=== PATIENT | male | born 1960 | race African-American/Black ===

== ENCOUNTER 2018-10-26 22:28 | Emergency (ER) | payer MEDICAID ==
[~2018-10-26] VITALS: Ht 182.9 cm; Wt 102.2 kg
[2018-10-27 00:23] LABS: CHLORIDE 104 mEq/L (98-107)
[2018-10-27 00:27] LABS: ETHANOL BLOOD < 10 mg/dL
[2018-10-27 01:30] VITALS: BP 198/120
[2018-10-28] MEDS ORDERED: FURO20TA4 MT (03:35)
== END 2018-10-27 03:02 | disposition left against medical advice (07) ==
LOC: ER 22:28 → CANBEDREQ 10-27 06:05
DX: I11.0 Hypertensive heart disease with heart failure (principal); I50.9 Heart failure, unspecified; F17.200 Nicotine dependence, unspecified, uncomplicated; Z86.73 Personal history of transient ischemic attack (TIA), and cerebral infarction without residual deficits; R40.4 Transient alteration of awareness
CPT/HCPCS: 36415; 71045; 80320; 93005; 99284; G0480

== ENCOUNTER 2018-10-27 07:56 | Inpatient (IN) | payer MEDICAID ==
[~2018-10-27] VITALS: Ht 180.3 cm; Wt 98.4 kg
[2018-10-27 08:53] LABS: EOSINOPHILS % 0.7 % (0.0-5.0); HEMATOCRIT. 39.4 % (42.0-52.0); LYMPHOCYTES % 7.6 % (20.0-50.0); MEAN CORPUSCULAR HEMOGLOBIN 30.8 pg (28.0-32.0); MEAN CORPUSCULAR VOLUME 93.5 fL (80.0-94.0); MEAN PLATELET VOLUME 8.5 fl (7.4-10.4); MONOCYTES % 8.7 % (2.0-8.0); PLATELET 221 x1000/uL (130-400); RED BLOOD CELL COUNT 4.21 mill/uL (4.7-6.1); RED CELL DISTRIBUTION WIDTH 15.8 % (11.6-14.6)
[2018-10-27 09:02] LABS: CHLORIDE 105 mEq/L (98-107)
[2018-10-27 09:05] LABS: ETHANOL BLOOD < 10 mg/dL
[2018-10-27 09:17] LABS: INR 1.1; PARTIAL THROMBOPLASTIN TIME 31.3 sec (23.4-31.0); PROTHROMBIN TIME 11.4 sec (9.1-11.1)
[2018-10-27] MEDS ORDERED: ASPIRIN 81MG TABLET PO ONE (10:00)
[2018-10-27] MEDS ORDERED: FUROSEMIDE 40MG/4ML VIAL IVP ONE (10:45)
[2018-10-27] MEDS ORDERED: ENALAPRIL 2.5MG/2ML VIAL 2ML IV ONE (10:45)
[2018-10-27] MEDS ORDERED: IPRATROPIUM/ALBUTEROL 0.5-3(2.5)MG/3ML NEB INH PRN (11:45)
[2018-10-27] MEDS ORDERED: ZOLPIDEM TARTRATE 5MG TABLET PO PRN (11:45)
[2018-10-27] MEDS ORDERED: NITROGLYCERIN 0.4MG TABLET SL SL PRN (11:45)
[2018-10-27] MEDS ORDERED: KETOROLAC 15MG/ML VIAL IV PRN (11:45)
[2018-10-27] MEDS ORDERED: MAGNESIUM/ALUMINUM HYDROXIDE/SIMETHICONE 30ML UDC PO PRN (11:45)
[2018-10-27] MEDS ORDERED: DOCUSATE SODIUM 100MG CAPSULE PO PRN (11:45)
[2018-10-27] MEDS ORDERED: ONDANSETRON HCL 4MG/2ML INJ IV PRN (11:45)
[2018-10-27] MEDS ORDERED: GUAIFENESIN 200MG/10ML SUGAR FREE UDC PO PRN (11:45)
[2018-10-27 11:49] LABS: CLARITY URINE CLEAR (CLEAR); COLOR URINE YELLOW (YELLOW); KETONES URINE TRACE (NEGATIVE); LEUKOCYTE ESTERASE URINE NEGATIVE (NEGATIVE); NITRITE URINE NEGATIVE (NEGATIVE); OCCULT BLOOD URINE 1+ (NEGATIVE); PH URINE 5.5 (4.5-8.0); PROTEIN URINE 2+ (NEGATIVE)
[2018-10-27] MEDS ORDERED: HYDRALAZINE HCL 50MG TABLET PO NR (12:15)
[2018-10-27] MEDS ORDERED: FAMOTIDINE 20MG TABLET PO SCH (12:15)
[2018-10-27 12:26] LABS: *AMPHETAMINES SCREEN URINE NEGATIVE (NEGATIVE); *BARBITURATES SCREEN URINE NEGATIVE (NEGATIVE)
[2018-10-27 12:27] LABS: *BENZODIAZEPINES SCREEN URINE NEGATIVE (NEGATIVE); *COCAINE SCREEN URINE NEGATIVE (NEGATIVE); CANNABINOID URINE SCREEN NEGATIVE (NEGATIVE); METHADONE URINE SCREEN NEGATIVE (NEGATIVE); OPIATES URINE SCREEN NEGATIVE (NEGATIVE); PHENCYCLIDINE URINE SCREEN NEGATIVE (NEGATIVE)
[2018-10-27] MEDS ORDERED: MINOXIDIL 2.5MG TABLET PO NR (12:30)
[2018-10-27] MEDS ORDERED: METOPROLOL TARTRATE 25MG TABLET PO NR (12:30)
[2018-10-27] MEDS ORDERED: ENOXAPARIN 40MG/0.4ML SYR SUBCUT SCH (13:00)
[2018-10-27] MEDS: CLONIDINE 0.1MG TABLET PO PRN (13:32)
[2018-10-27] MEDS: AMLODIPINE 10MG TABLET PO SCH (14:50)
[2018-10-27] MEDS ORDERED: LIDOCAINE HCL 1% 20ML VIAL (Pyxis) INJ ONE (14:55)
[2018-10-27 23:55] VITALS: BP 171/105
[2018-10-27 23:59] VITALS: BP 171/105
[2018-10-28] MEDS ORDERED: HYDRALAZINE HCL 50MG TABLET PO SCH
[2018-10-28] MEDS: METOPROLOL TARTRATE 25MG TABLET PO SCH ×2 (00:23→09:38)
[2018-10-28] MEDS: MINOXIDIL 2.5MG TABLET PO SCH ×2 (00:24→09:47)
[2018-10-28] MEDS: FUROSEMIDE 40MG/4ML VIAL IVP SCH ×2 (00:24→09:32)
[2018-10-28] MEDS ORDERED: FURO20TA4 MT (03:35)
[2018-10-28 04:00] VITALS: BP 155/107
[2018-10-28] MEDS: CLONIDINE 0.1MG TABLET PO PRN (04:44)
[2018-10-28 06:37] LABS: BASOPHILS % 1.1 % (0.0-2.0); EOSINOPHILS % 2.8 % (0.0-5.0); HEMATOCRIT. 35.3 % (42.0-52.0); HEMOGLOBIN. 11.5 g/dL (14.0-18.0); LYMPHOCYTES % 10.4 % (20.0-50.0); MEAN CORPUSCULAR HEMOGLOBIN 30.2 pg (28.0-32.0); MEAN CORPUSCULAR VOLUME 92.5 fL (80.0-94.0); MEAN PLATELET VOLUME 8.3 fl (7.4-10.4); MONOCYTES % 7.8 % (2.0-8.0); NEUTROPHILS % 77.9 % (40.0-76.0); PLATELET 231 x1000/uL (130-400); RED BLOOD CELL COUNT 3.81 mill/uL (4.7-6.1); RED CELL DISTRIBUTION WIDTH 15.9 % (11.6-14.6)
[2018-10-28 08:00] VITALS: BP 156/93
[2018-10-28] MEDS ORDERED: ASPIRIN 325MG EC TABLET PO SCH (09:00)
[2018-10-28] MEDS ORDERED: ENOXAPARIN 30MG/0.3ML SYR SUBCUT SCH (09:00)
[2018-10-28] MEDS ORDERED: FAMOTIDINE 20MG TABLET PO SCH (09:00)
[2018-10-28] MEDS: AMLODIPINE 10MG TABLET PO SCH (09:46)
[2018-10-28 11:10] VITALS: BP 156/93
[2018-10-29] MEDS ORDERED: FAMOTIDINE 20MG TABLET PO SCH (09:00)
== END 2018-10-28 15:29 | disposition home or self-care (01) | DRG 469 ==
LOC: ER 07:56 → 7WST 10:39 → ENRESERV 20:45
PROVIDERS: ADMIT Internal Medicine; ATTEND Internal Medicine
DX: N17.0 Acute kidney failure with tubular necrosis (principal); E11.22 Type 2 diabetes mellitus with diabetic chronic kidney disease; E44.0 Moderate protein-calorie malnutrition; E83.51 Hypocalcemia; I13.0 Hypertensive heart and chronic kidney disease with heart failure and stage 1 through stage 4 chronic kidney disease, or unspecified chronic kidney disease; I50.42 Chronic combined systolic (congestive) and diastolic (congestive) heart failure; E66.9 Obesity, unspecified; D64.9 Anemia, unspecified; F17.210 Nicotine dependence, cigarettes, uncomplicated; I16.9 Hypertensive crisis, unspecified; J44.9 Chronic obstructive pulmonary disease, unspecified; N18.9 Chronic kidney disease, unspecified; Z59.0 Homelessness; Z86.73 Personal history of transient ischemic attack (TIA), and cerebral infarction without residual deficits; Z93.1 Gastrostomy status; Z97.0 Presence of artificial eye; Z88.8 Allergy status to other drugs, medicaments and biological substances; Z68.30 Body mass index [BMI] 30.0-30.9, adult; Z71.6 Tobacco abuse counseling
CPT/HCPCS: 36415; 71045; 76770; 80048; 80061; 80305; 80320; 83036; 83880; 84484; 93005; 93306; 93970; 96374; 96375; 99285; J1650; J1885; J1940; J3490; G0480